=== PATIENT | female | born 1995 | race American Indian/Alaskan Native ===

== ENCOUNTER 2017-11-16 18:17 | Emergency (ER) | payer SELFPAY ==
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
[2017-11-16] MEDS ORDERED: MOTRIN PO ONE (21:42)
[2017-11-17 00:34] VITALS: BP 113/62
== END 2017-11-16 22:00 | disposition home or self-care (01) ==
LOC: ED 18:17
DX: M79.1 Myalgia (principal); V49.49XA Driver injured in collision with other motor vehicles in traffic accident, initial encounter; W22.11XA Striking against or struck by driver side automobile airbag, initial encounter; Y93.89 Activity, other specified; Y92.89 Other specified places as the place of occurrence of the external cause; Y99.8 Other external cause status
CPT/HCPCS: 72040; 99283

== ENCOUNTER 2020-04-17 18:59 | Emergency (ER) | payer SELFPAY ==
[2020-04-17 19:16] VITALS: BP 114/78
== END 2020-04-17 19:40 | disposition left against medical advice (07) ==
LOC: ED 18:59
DX: Z00.00 Encounter for general adult medical examination without abnormal findings (principal); Z53.21 Procedure and treatment not carried out due to patient leaving prior to being seen by health care provider

== ENCOUNTER 2020-12-23 11:37 | Emergency (ER) | payer BC ==
--- NOTE | 2020-12-23 12:56 | Emergency Department Report ---
Blank Doc - Documentation Documentation: 25-year-old female that presents with acute psychosis. Patient denies any his tory of this. Denies any suicidal homicidal ideation. Patient denies any history of psych. 1- This initial assessment/diagnostic orders/clinical plan/ treatment(s) is/are subject to change based on pt's health status, clinical progression and re- assessment by fellow clinical providers in the ED. Further treatment and workup at subsequent clinical provers discretion. Patient/guardians urged not to elope from ED as their condition may be serious if not clinically assessed and managed. 2-consulted with Dr. Hagen and agrees to ED plan of care with imaging studies 3- pt placed on psych hold orders and certified ophthalmic technologist notified.
[2020-12-23 12:58] LABS: Eosinophils # (Auto) 0.1 K/mm3 (0.0-0.4); Eosinophils % (Auto) 2.3 % (0.0-4.3); Hematocrit 35.1 % (30.3-42.9); Hemoglobin 11.5 gm/dl (10.1-14.3); Lymphocytes # (Auto) 1.9 K/mm3 (1.2-5.4); Lymphocytes % (Auto) 40.3 % (13.4-35.0); Mean Corpuscular HGB Conc 33 % (30-34); Mean Corpuscular Volume 87 fl (79-97); Monocytes # (Auto) 0.5 K/mm3 (0.0-0.8); Monocytes % (Auto) 10.2 % (0.0-7.3); Platelet Count 268 K/mm3 (140-440); Red Blood Count 4.05 M/mm3 (3.65-5.03); Red Cell Distribution Width 16.1 % (13.2-15.2)
[2020-12-23 13:38] LABS: Blood Urea Nitrogen 6 mg/dL (7-17); Calcium 9.7 mg/dL (8.4-10.2); Hemolysis Index 3
[2020-12-23 13:39] LABS: BUN/Creatinine Ratio 10
--- NOTE | 2020-12-23 14:29 | Cat Scan Report ---
CT head/brain wo con INDICATION: acute psychosis. TECHNIQUE: Routine CT head. All CT scans at this location are performed using CT dose reduction for A FLAVIO by means of automated exposure control. COMPARISON: None. FINDINGS: Intracranial: Chávez-white matter differentiation is maintained. No intracranial hemorrhage. No extra a xial collection. No hydrocephalus. No herniation. Sinuses: Paranasal sinuses and mastoid air cells are essentially clear. Orbits: Globes are intact. Calvarium: No acute fracture. IMPRESSION: 1. No acute intracranial abnormality. Signer Name: Joao Jones MD Signed: 12/23/2020 2:24 PM Workstation Name: [id number]
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
[2020-12-23 16:07] LABS: Bilirubin,Urine NEG (Negative); Blood,Urine NEG (Negative); Color,Urine Yellow (Yellow); Mucus,Urine FEW /HPF; Protein,Urine <15 mg/dL mg/dL (Negative); Urobilinogen,Urine < 2.0 mg/dL (<2.0)
[2020-12-23 16:09] LABS: Amphetamine Screen,Urine Negative; Benzodiazepines Screen,Urine Negative; Cocaine Screen,Urine Negative; Methadone Screen,Urine Negative; Opiate Screen,Urine Negative
[2020-12-23 16:20] LABS: Cannabinoid Screen,Urine Positive
[2020-12-24 08:14] VITALS: BP 132/66
== END 2020-12-23 22:22 ==
LOC: ED 11:37
DX: F23 Brief psychotic disorder (principal); F30.9 Manic episode, unspecified; R45.850 Homicidal ideations; R51.9 Headache, unspecified; F17.200 Nicotine dependence, unspecified, uncomplicated; Z98.890 Other specified postprocedural states; Z79.1 Long term (current) use of non-steroidal anti-inflammatories (NSAID); Z79.899 Other long term (current) drug therapy
CPT/HCPCS: 36415; 70450; 80048; 80307; 80320; 81001; 84443; 84703; 85025; 87086; G0480

== ENCOUNTER 2021-09-08 11:55 | Outpatient (CLI) | payer BC, MEDICAID ==
[2021-09-08 12:43] VITALS: BP 101/55
[2021-09-08] MEDS ORDERED: LACTATED RINGERS 500 ML IV ONE (12:50)
[2021-09-08 13:22] LABS: Amorphous Crystals,Urine 3+; Bacteria,Urine 2+ /HPF (Negative); Bilirubin,Urine NEG (Negative); Blood,Urine NEG (Negative); Color,Urine Yellow (Yellow); Mucus,Urine FEW /HPF; Protein,Urine <15 mg/dL mg/dL (Negative); Urobilinogen,Urine < 2.0 mg/dL (<2.0)
--- NOTE | 2021-09-08 16:38 | Ultrasound Report ---
ULTRASOUND OBSTETRIC LIMITED ULTRASOUND BIOPHYSICAL PROFILE INDICATION / CLINICAL INFORMATION: Biophysical profile. Clinical Gestational Age (GA) in weeks, days: 29, 0 TECHNIQUE: Transabdominal. COMPARISON: None available. FINDINGS: BREATHING MOVEMENT = 2 GROSS BODY MOVEMENT = 2 TONE = 2 QUALITATIVE AMNIOTIC FLUID VOLUME = 2 TOTAL BIOPHYSICAL SCORE = 8/8 HEART RATE (beats per minute): 154 AMNIOTIC FLUID INDEX (cm) = normal but not measured (normal = 7-24 cm) PRESENTATION: Cephalic. ADDITIONAL FINDINGS: None. IMPRESSION: 1. Biophysical Score = 8/8 Signer Name: Brittaney Aldridge MD Signed: 09/08/2021 4:34 PM Workstation Name: [id number]
== END 2021-09-08 14:44 | disposition home or self-care (01) ==
LOC: TRG 11:55 → APU 11:56 → TRG 14:44
PROVIDERS: ATTEND Obstetrics & Gynecology
DX: O26.893 Other specified pregnancy related conditions, third trimester (principal); Z3A.29 29 weeks gestation of pregnancy
CPT/HCPCS: 76819; 81001

== ENCOUNTER 2021-11-18 11:26 | Outpatient (CLI) | payer BC, MEDICAID ==
[2021-11-18 12:07] VITALS: BP 100/62
--- NOTE | 2021-11-18 13:25 | Ultrasound Report ---
ULTRASOUND OBSTETRIC LIMITED ULTRASOUND BIOPHYSICAL PROFILE INDICATION / CLINICAL INFORMATION: Evaluate well-being and KB. COMPARISON: OB ultrasound performed on 09/08/2021. FINDINGS: BREATHING MOVEMENT = 2 GROSS BODY MOVEMENT = 2 TONE = 2 QUALITATIVE AMNIOTIC FLUID VOLUME = 2 TOTAL BIOPHYSICAL SCORE = 8/8 AMNIOTIC FLUID INDEX (cm) = 15.2 PRESENTATION: Cephalic. HEART RATE (beats per minute): 152 ADDITIONAL FINDINGS: None. IMPRESSION: 1. Biophysical Score = 8/8 2. Normal amniotic fluid index of 15.2 cm. Signer Name: David Huerta MD Signed: 11/18/2021 1:20 PM Workstation Name: [id number]
== END 2021-11-18 12:50 | disposition home or self-care (01) ==
LOC: TRG 11:26 → APU 11:28 → TRG 12:50
PROVIDERS: ATTEND Obstetrics & Gynecology
DX: Z34.93 Encounter for supervision of normal pregnancy, unspecified, third trimester (principal); Z3A.39 39 weeks gestation of pregnancy
CPT/HCPCS: 59025; 76815; 76819

== ENCOUNTER 2021-11-24 11:10 | Inpatient (IN) | payer BC, MEDICAID ==
[2021-11-24] MEDS ORDERED: ONDANSETRON 4 MG/2 ML INJ IV PRN (13:08)
[2021-11-24] MEDS ORDERED: CARBOPROST TROMETHAMINE 250 MCG/1 ML INJ IM PRN (13:08)
[2021-11-24] MEDS ORDERED: fentaNYL 100 MCG/2 ML INJ IV PRN (13:08)
[2021-11-24] MEDS ORDERED: METHYLERGONOVINE MALEATE 0.2 MG/ML VIAL IM PRN (13:08)
[2021-11-24] MEDS ORDERED: DINOPROSTONE 10 MG VAG SUPP VG ONE (13:08)
[2021-11-24] MEDS ORDERED: MINERAL OIL 30 ML ORAL LIQD PO PRN (13:08)
[2021-11-24] MEDS ORDERED: BUTORPHANOL 2 MG/1 ML INJ IV PRN ×2 (13:08)
[2021-11-24] MEDS ORDERED: ACETAMINOPHEN 325 MG TAB PO PRN (13:08)
[2021-11-24] MEDS ORDERED: ePHEDrine SULFATE 50 MG/1 ML INJ IV PRN (13:08)
[2021-11-24] MEDS ORDERED: TERBUTALINE 1 MG/1 ML INJ SUB-Q PRN (13:08)
[2021-11-24] MEDS ORDERED: OXYTOCIN 10 UNIT/1 ML INJ IM PRN (13:08)
[2021-11-24] MEDS ORDERED: LIDOCAINE (2%) 20 MG/1 ML VIAL 20 ML MDV INFILTRATI ONE (13:08)
[2021-11-24] MEDS ORDERED: LOPERAMIDE 2 MG CAP PO PRN (13:08)
[2021-11-24] MEDS ORDERED: miSOPROStol 200 MCG TAB PR PRN (13:08)
[2021-11-24] MEDS ORDERED: NalbUPHINE 10 MG/1 ML INJ IV PRN (13:08)
[2021-11-24] MEDS ORDERED: LACTATED RINGERS 1,000 ML IV SCH (13:15)
--- NOTE | 2021-11-24 13:24 | History and Physical Report ---
History of Present Illness Date of examination: 11/24/21 Date of admission: 11/24/21 11:10 Chief complaint: Small for dates. History of present illness: 40 wks, CHIR[place] 11/24/21. G2 Para 0. STD earlier in preg. Past History Past Medical History: other (Bipolar disorder) ACCOUNTS RECEIVABLE EXECUTIVE History: chlamydia, gonorrhea Social history: no significant social history - Obstetrical History Expected Date of Delivery: 11/24/21 Actual Gestation: 40 Week(s) 0 Day(s) : 2 Para: 0 Medications and Allergies Allergies Allergy/AdvReac Type Severity Reaction Status Date / Time No Known Allergies Allergy Verified 11/24/21 13:14 Home Medications Medication Instructions Recorded Confirmed Last Taken Type Cyclobenzaprine [Flexeril] 10 mg PO TID PRN #6 tablet 11/16/17 Unknown Rx Ibuprofen [Motrin] 600 mg PO Q8H PRN #20 tablet 11/16/17 Unknown Rx Active Meds: Active Medications Acetaminophen (Acetaminophen 325 Mg Tab) 650 mg PO Q4H PRN PRN Reason: Pain, Mild (1-3) Butorphanol Tartrate (Butorphanol 2 Mg/1 Ml Inj) 1 mg IV Q2H PRN PRN Reason: Pain, Moderate(4-6) LABOR PAIN Butorphanol Tartrate (Butorphanol 2 Mg/1 Ml Inj) 2 mg IV Q2H PRN PRN Reason: Pain , Severe (7-10) Carboprost Tromethamine (Carboprost Tromethamine 250 Mcg/1 Ml Inj) 250 mcg IM ONCE PRN PRN Reason: Uterine Bleeding Dinoprostone (Dinoprostone 10 Mg Vag Supp) 10 mg VG ONCE ONE Stop: 11/24/21 13:09 Ephedrine Sulfate (Ephedrine Sulfate 50 Mg/1 Ml Inj) 10 mg IV Q2M PRN PRN Reason: Hypotension Fentanyl (Fentanyl 100 Mcg/2 Ml Inj) 100 mcg IV Q2H PRN PRN Reason: Pain,Severe (7-10) LABOR PAIN Oxytocin/Sodium Chloride (Pitocin/Ns 30 Unit/500ml) 30 units in 500 mls @ 2 mls/hr IV TITR ASHLEY; Protocol Lactated Ringer's (Lactated Ringers) 1,000 mls @ 125 mls/hr IV DIRECT ASHLEY Oxytocin/Sodium Chloride (Pitocin/Ns 30 Unit/500ml) 30 units in 500 mls @ 40 mls/hr IV TITR ASHLEY; Protocol Lidocaine (Lidocaine (2%) 20 Mg/1 Ml Vial 20 Ml Mdv) 20 ml INFILTRATI ONCE ONE Stop: 11/24/21 13:09 Loperamide HCl (Loperamide 2 Mg Cap) 2 mg PO ONCE PRN PRN Reason: give with Hemabate Methylergonovine Maleate (Methylergonovine Maleate 0.2 Mg/Ml Vial) 0.2 mg IM ONCE PRN PRN Reason: Uterine Bleeding Mineral Oil (Mineral Oil 30 Ml Oral Liqd) 30 ml PO QHS PRN PRN Reason: Constipation Misoprostol (Misoprostol 200 Mcg Tab) 800 mcg MT ONCE PRN PRN Reason: Uterine Bleeding Nalbuphine HCl (Nalbuphine 10 Mg/1 Ml Inj) 10 mg IV Q2H PRN PRN Reason: Pain, Moderate (4-6) Ondansetron HCl (Ondansetron 4 Mg/2 Ml Inj) 4 mg IV Q8H PRN PRN Reason: Nausea And Vomiting Oxytocin (Oxytocin 10 Unit/1 Ml Inj) 10 unit IM ONCE PRN PRN Reason: Uterine Bleeding Terbutaline Sulfate (Terbutaline 1 Mg/1 Ml Inj) 0.25 mg SUB-Q ONCE PRN PRN Reason: Hyperstimulation/Hypertonicity Review of Systems All systems: negative - Vital Signs Vital signs: Vital Signs Pulse BP Pulse Ox 54 L 102/54 71 L 11/24/21 12:02 11/24/21 12:02 11/24/21 12:02 Temp Pulse Resp BP Pulse Ox 98.7 F 69 20 102/54 96 11/24/21 12:03 11/24/21 13:16 11/24/21 12:03 11/24/21 12:03 11/24/21 13:16 - Physical Exam Breasts: Positive: deferred Cardiovascular: Normal S1, Normal S2, No murmurs Lungs: Positive: Normal air movement Abdomen: Positive: soft, normal bowel sounds Genitourinary (Female): Positive: normal external genitalia, normal perenium Vulva: both: normal Vagina: Positive: normal moisture. Negative: discharge Cervix: Negative: lesion, discharge Uterus: Positive: enlarged, normal contour Anus/Rectum: Positive: normal perianal skin, heme negative. Negative: rectal mass, hemorrhoids Extremities: Positive: normal Deep Tendon Reflex Grade: Normal +2 - Obstetrical FHR: auscultation normal Cervical Dilatation: 0 Cervical Effacement Percentage: 85 station: 0-1 Uterine Contraction Pattern: Absent Results All other labs normal. Assessment and Plan - Patient Problems (1) Small for dates in prior , currently in third trimester Current Visit: Yes Status: Acute (2) 40 weeks gestation of Current Visit: Yes Status: Acute Plan to address problem: for L&D observation with induction of labor.
[2021-11-24 13:25] LABS: Hematocrit 35.4 % (30.3-42.9); Hemoglobin 11.9 gm/dl (10.1-14.3); Mean Corpuscular HGB Conc 34 % (30-34); Mean Corpuscular Volume 92 fl (79-97); Platelet Count 199 K/mm3 (140-440); Red Blood Count 3.85 M/mm3 (3.65-5.03); Red Cell Distribution Width 13.4 % (13.2-15.2)
[2021-11-24] MEDS ORDERED: OXYTOCIN DRIP 30 UNITS/500 ML BAG IV SCH ×2 (14:00)
[2021-11-25] MEDS ORDERED: DINOPROSTONE 10 MG VAG SUPP VG NR (09:37)
--- NOTE | 2021-11-25 10:02 | Event Note ---
Date: 11/25/21 Stable. Patient unable to tolerate vaginal exam. Charge nurse SHYLA Edwards reported a closed cervix. Patient declined epidural at this time.
[2021-11-26] MEDS: miSOPROStol 25 MCG TAB PO SCH ×3 (01:10→09:38)
--- NOTE | 2021-11-26 14:37 | Event Note ---
Date: 11/26/21 Sitting by bedside and eating breakfast. Massiel q8-10mins. Fetus reactive. Still uncooperative with vaginal exams including placement of medications. Observation of ongoing contractions will continue and if becomes painful and patient consents for an epidural, management of labor and delivery process can continue. Told patient a delivery is under consideration if she wont tolerate vag exams.
[2021-11-27] MEDS ORDERED: LIDOCAINE MPF (2%) 20 MG/1 ML VIAL 5 ML ONE (01:48)
[2021-11-27] MEDS ORDERED: ePHEDrine SULFATE 50 MG/1 ML INJ IV PRN (02:13)
[2021-11-27] MEDS ORDERED: NALOXONE 2 MG/2 ML INJ IV PRN (02:13)
--- NOTE | 2021-11-27 02:15 | Anesthesia Consultation ---
Anesthesia Consult and Med Hx Date of service: 11/27/21 - Airway Anesthetic Teeth Evaluation: Good ROM Head & Neck: Adequate Mental/Hyoid Distance: Adequate Mallampati Class: Class II Intubation Access Assessment: Probably Good - Pulmonary Exam CTA: Yes - Cardiac Exam Cardiac Exam: RRR - Pre-Operative Health Status ASA Pre-Surgery Classification: ASA2 Proposed Anesthetic Plan: Epidural - Pulmonary Hx Asthma: No COPD: No Hx Pneumonia: No - Cardiovascular System Hx Hypertension: No - Central Nervous System Hx Seizures: No Hx Psychiatric Problems: Yes - Endocrine Hx Renal Disease: No Hx End Stage Renal Disease: No Hx Hypothyroidism: No Hx Hyperthyroidism: No - Hematic Hx Anemia: Yes Hx Sickle Cell Disease: No - Other Systems Hx Alcohol Use: No
--- NOTE | 2021-11-27 02:29 | Event Note ---
Date: 11/27/21 Was called with report patient was 9cm dilated. Patient recalcitrant in not allowing vaginal exam. Brief exam by me before she nearly jumped off the bed was at best 6cm. For overall safety of patient and her fetus further conduct of labor for a chance at vaginal delivery was stopped. Patient will be delivered by .
[2021-11-27] MEDS ORDERED: FAMOTIDINE 20 MG/2 ML INJ IV ONE (02:30)
[2021-11-27] MEDS ORDERED: METOCLOPRAMIDE 10 MG/2 ML INJ IV ONE (02:30)
[2021-11-27] MEDS ORDERED: BICITRA ORAL LIQD 30ML PO ONE (02:30)
[2021-11-27] MEDS ORDERED: propofoL 200 MG/20 ML VIAL IV ONE (02:41)
[2021-11-27] MEDS ORDERED: KETAMINE/STERILE WATER 50 MG/ML SYRINGE ONE (02:42)
[2021-11-27] MEDS ORDERED: ROCURONIUM 50 MG/5 ML INJ IV ONE (02:44)
[2021-11-27] MEDS ORDERED: SUGAMMADEX SODIUM 200 MG/2 ML VIAL IV ONE (02:51)
[2021-11-27] MEDS ORDERED: fentaNYL-BUPIV 2 MCG/ML-0.125% 200 MCG/100 ML BAG EPIDURAL SCH (03:00)
[2021-11-27] MEDS ORDERED: OXYTOCIN DRIP 30 UNITS/500 ML BAG IV SCH ×2 (03:00→05:00)
[2021-11-27] MEDS ORDERED: ceFAZolin/Water 2 GM/20 ML 2 GM/20 ML SYRINGE IV NR (03:00)
[2021-11-27] MEDS ORDERED: ceFAZolin/STERILE WATER 2 GM/20 ML SYRINGE IV ONE (03:25)
[2021-11-27] MEDS ORDERED: dexAMETHasone 20 MG/5 ML VIAL ONE (03:26)
[2021-11-27] MEDS ORDERED: BUPIVACAINE/PF (0.25%) 2.5 MG/ML 30 ML VIAL INFILTRATI ONE (03:26)
[2021-11-27] MEDS ORDERED: ONDANSETRON 4 MG/2 ML INJ ONE (03:26)
[2021-11-27] MEDS ORDERED: WATER FOR IRRIG STERILE 1,500 ML BOTTLE IR ONE (03:28)
[2021-11-27] MEDS ORDERED: SODIUM CHLORIDE 0.9% IRR 1,500 ML BOTTLE IR ONE (03:28)
[2021-11-27] MEDS ORDERED: LACTATED RINGERS 1,000 ML ONE (03:34)
[2021-11-27] MEDS ORDERED: OXYTOCIN 10 UNIT/1 ML INJ ONE (03:49)
[2021-11-27] MEDS ORDERED: KETOROLAC 30 MG/1 ML INJ ONE (03:49)
[2021-11-27] MEDS ORDERED: HETASTARCH 6% 500 ML IV ONE (03:50)
[2021-11-27] MEDS ORDERED: WITCH HAZEL/ GLYCERIN PAD TP PRN (04:16)
[2021-11-27] MEDS ORDERED: MORPHINE 2 MG/1 ML INJ IV PRN (04:16)
[2021-11-27] MEDS ORDERED: KETOROLAC 30 MG/1 ML INJ IV PRN ×2 (04:16)
[2021-11-27] MEDS ORDERED: IBUPROFEN 600 MG TAB PO PRN (04:16)
[2021-11-27] MEDS ORDERED: NALOXONE 0.4 MG/1 ML INJ IV PRN (04:16)
[2021-11-27] MEDS ORDERED: MORPHINE 4 MG/1 ML INJ IV PRN (04:16)
[2021-11-27] MEDS ORDERED: LANOLIN/ZINC/DIMETHICONE (LANSINOH) 7 GM TP PRN (04:16)
--- NOTE | 2021-11-27 04:24 | Operative Report ---
Operative Report Operative Report: Date of surgery: November 27, 2021 Preoperative diagnoses: Primigravida, 40+ weeks gestation, vaginismus, i ntolerance of labor. Postoperative diagnoses: The same. Operation: Lower segment transverse delivery Surgeon:Ynes Dorsey MD Remote Sensing Technician: Dominick Carranza CRNA Anesthesia: General anesthesia Estimated blood loss: 1395 mL Complications: None Findings: There was a live baby girl with vertex in the false maternal pelvis, Apgars 6 and 8. Both ovaries and tubes as well as the uterus were unremarkable gravid structures. There were no abnormalities detected within the lower abdomen and pelvis. Procedure in detail: The patient was taken to the operating room and given general anesthesia. Patient was placed in the straight supine position and a Eastman catheter was inserted. The patient was prepped in the abdomen. The drapes were placed. A timeout was done. With the go ahead from the tc operator, a Pfannenstiel incision was made. This incision was carried across the subcutaneous layer to the fascia which was also divided transversely. The recti abdominis muscle flaps were stripped from the fascia using a combination of blunt and sharp dissections. The muscles were in the midline to gain access to the anterior parietal peritoneum which was divided after excluding any underlying viscera. The access to the peritoneal cavity was then widened by manual stretching. The bladder blade was applied. The utero vesicle peritoneal flap was divided transversely allowing the bladder to be displaced caudally. The uterine incision was placed in the lower segment transversely. The uterine incision was carried to the decidual layer. The uterine incision was extended on both sides using the bandage scissors. The amniotic sac was ruptured with clear fluid. The head was lifted out of the false maternal pelvis and delivered through the incision using fundal pressure plus traction with the Kiwi. The airways were bulb suctioned beginning with the mouth. Continuing fundal pressure combined with traction on the mandibular processes of the jaw delivered the rest of the baby. The umbilical cord was double clamped and divided. The baby was carefully transferred to the pediatric team. The placenta was manually removed from the uterine cavity. The uterine cavity was explored and was empty of any placental remnants. The uterine incision was repaired in 2 layers with #1 Vicryl. The surgical line on the uterus was hemostatic. Blood and clots were cleared from the peritoneal cavity. The anterior parietal peritoneum was repaired with #1 Vicryl. The fascia was repaired with #1 Vicryl. The subcutaneous layer was made hemostatic using the Bovie before the skin was closed subcuticularly with 4-0 Vicryl. There were no complications. The estimated blood loss was 1395 mL. All sponges and instrument counts were correct. Patient was safely transferred to the recovery room.
[2021-11-27] MEDS ORDERED: PRENATAL VIT27-FE FUMARATE-FOLIC ACID VIT TAB PO SCH (10:00)
[2021-11-27] MEDS: ceFAZolin/NS 1 GM/50 ML 1 GM/50 ML BAG IV SCH ×2 (10:30→18:24)
[2021-11-27] MEDS: IBUPROFEN 800 MG TAB PO PRN ×2 (12:18→18:24)
--- NOTE | 2021-11-27 12:40 | Post Anesthesia Evaluation ---
- Post Anesthesia Evaluation Patient Participated: Yes Airway Patent: Yes Stable Respiratory Function: Yes Nausea/Vomiting: No Temp > 96.8F: Yes Pain Manageable: Yes Adequeate Hydration: Yes Anesthesia Complications: No Block Receding Appropriately: Yes
[2021-11-27] MEDS: HYDROcodone/ACETAMINOPHEN 5-325 MG TAB PO PRN (15:08)
[2021-11-28 00:29] LABS: Basophils % (Auto) 0.1 % (0.0-1.8); Hematocrit 26.8 % (30.3-42.9); Lymphocytes % (Auto) 12.1 % (13.4-35.0); Mean Corpuscular HGB Conc 33 % (30-34); Mean Corpuscular Volume 93 fl (79-97); Monocytes # (Auto) 1.6 K/mm3 (0.0-0.8); Monocytes % (Auto) 9.7 % (0.0-7.3); Platelet Count 167 K/mm3 (140-440); Red Blood Count 2.88 M/mm3 (3.65-5.03); Red Cell Distribution Width 13.4 % (13.2-15.2)
--- NOTE | 2021-11-28 10:02 | Progress Note ---
Assessment and Plan - Patient Problems (1) Small for dates infant in prior , currently in third trimester Current Visit: Yes Status: Resolved (2) 40 weeks gestation of Current Visit: Yes Status: Resolved (3) Vaginismus Current Visit: Yes Status: Acute (4) Bipolar disease, chronic Current Visit: Yes Status: Chronic (5) Status post delivery Current Visit: Yes Status: Acute Plan to address problem: Stable, doing great and is happy. Considering going home later today. Subjective - Subjective Date of service: 11/28/21 Principal diagnosis: Status post day 1. Interval history: 40 wks, [place]AG 11/24/21. G2 Para 0. STD earlier in preg. section 11/27/21. Patient reports: appetite normal (0), voiding normally, pain well controlled, ambulating normally Objective - Vital Signs Latest vital signs: Vital Signs Temp Pulse Resp BP Pulse Ox Pulse Ox 11/28/21 08:10 98.4 F 71 18 108/77 98 11/28/21 08:00 98 11/28/21 00:07 98.5 F 77 20 106/54 98 11/27/21 20:39 98.6 F 64 20 116/53 100 11/27/21 20:10 100 11/27/21 15:44 99.4 F 103 H 18 102/59 93 11/27/21 12:00 98.8 F 67 18 126/77 99 Intake and Output 11/27/21 11/28/21 11/28/21 23:59 07:59 15:59 Intake Total 720 600 Output Total 550 1150 Balance 170 -550 Intake: Oral 360 240 Intake, Free Water 360 360 Output: Urine 550 1150 Void 550 1150 Other: Total, Intake Amount 360 240 Total, Output Amount 550 650 - Exam Breasts: Present: deferred Lungs: Present: Normal air movement Abdomen: Present: normal appearance, soft, normal bowel sounds Uterus: Present: normal, firm Extremities: Present: normal Deep Tendon Reflex Grade: Normal +2 Incision: Present: normal, dry, intact - Labs Labs: Abnormal lab results 11/27/21 Range/Units 23:42 WBC 16.9 H (4.5-11.0) K/mm3 RBC 2.88 L (3.65-5.03) M/mm3 Hgb 9.0 L (10.1-14.3) gm/dl Hct 26.8 L (30.3-42.9) % Lymph % (Auto) 12.1 L (13.4-35.0) % Vermillion % (Auto) 9.7 H (0.0-7.3) % [place] # (Auto) 1.6 H (0.0-0.8) K/mm3 Seg Neutrophils % 78.1 H (40.0-70.0) % Seg Neutrophils # 13.2 H (1.8-7.7) K/mm3
--- NOTE | 2021-11-28 10:11 | Discharge Summary ---
Providers - Providers Date of Admission: 11/24/21 13:08 Date of discharge: 11/29/21 Attending physician: SHONNA MACARIO MD Primary care physician: SHONNA MACARIO MD Hospitalization Reason for admission: observation, induction of labor, IUP at term Delivery: Procedure: section Episiotomy: none Laceration: none Incision: normal, dry, intact Other procedures: none Discharge diagnosis: IUP at term delivered baby: female Condition at discharge: Good Disposition: 01 HOME / SELF CARE / HOMELESS - Discharge Diagnoses (1) Small for dates infant in prior , currently in third trimester Status: Resolved (2) 40 weeks gestation of Status: Resolved (3) Vaginismus Status: Acute (4) Bipolar disease, chronic Status: Chronic (5) Status post delivery Status: Acute Plan - Provider Discharge Summary Activity: routine, no sex for 6 weeks, no heavy lifting 4 weeks, no strenuous exercise, other Diet: routine Instructions: other (Must see own Psychiatrist patsy upon discharge for her bipolar meds.) Additional instructions: [] Smoking cessation referral if applicable(refer to patient education folder for contact #) [] Refer to [facility]'s [facility] Booklet Call your doctor immediately for: * Fever > 100.5 * Heavy vaginal bleeding ( >1 pad per hour) * Severe persistent headache * Shortness of breath * Reddened, hot, painful area to leg or breast * Drainage or odor from incision. * Keep incision clean and dry at all times and follow doctor's instructions regarding bathing/showering - Follow up plan Follow up: SHONNA MACARIO MD [Primary Care Provider] - 7 Days
[2021-11-28] MEDS: IBUPROFEN 800 MG TAB PO PRN (22:15)
[2021-11-29] MEDS: HYDROcodone/ACETAMINOPHEN 5-325 MG TAB PO PRN (11:06)
--- NOTE | 2021-11-29 11:51 | Consultation ---
History of Present Illness - Reason for Consult Consult date: 11/29/21 Reason for consult: Hx of bipolar - Chief Complaint Chief complaint: Small for dates. - History of Present Psychiatric Illness The patient is a 26 year old female with history of bipolar disorder who was consulted for mental health evaluation. The patient was seen this morning. She is calm, alert and oriented x3. the The patient reports that she was diagnosed with bipolar in 12/15 and was admitted at a psychiatric inpatient facility at that time. She is unable to recall the psychotropic meds that she was started on but states she stopped taking meds since her . She denies being depressed, excessively anxious or having manic symptoms. The patient reports that she sees a psychiatrist and would be following up with them post discharge. She denies any current suicidal/homicidal ideation and denies hallucinations. PAST PSYCHIATRIC HISTORY Diagnoses: Bipolar Suicide attempts or Self-harm behavior:Denies Prior psychiatric hospitalizations: Denies Substance Abuse history:Marijuana Previous psychiatric medications tried:Denies Outpatient treatment: denies SOCIAL HISTORY Marital Status: Single Living Arrangements: Lives with mother Employment Status: Unemployed Access to guns/weapons: Denies Education: 12th grade History of abuse: Denies Legal History: Denies ROS Constitutional: Negative for weight loss EMT: Respiratory: Negative for cough or hemoptysis All other systems reviewed and are negative MENTAL STATUS EXAMINATION General Appearance: Dressed appropriately. Behavior: Calm and cooperative. Good eye contact. Mood: ok Affect: congruent to stated mood Speech: Normal Thought Process: Goal directed Thought Content:Denies Suicidal Ideation:Denies Homicidal Ideation: Denies Hallucinations: Denies Delusions: None elicited Insight and Judgment: Limited Memory/Cognition: Limited Assessment and Plan (1)Hx of Bipolar Treatment Plan No medications prescribed Risks, benefits and alternatives of medications discussed with the patient, questions answered and consent obtained from patient. PSYCHOTHERAPY: Supportive psychotherapy provided MEDICAL: Per primary team DELIRIUM PRECAUTIONS: Please re-orient patient frequently, keep lights on during the day, and minimize benzodiazepines and opiates as these medications could worsen patient's confusion. WAITER: Per primary DISPOSITION:Do not recommend acute inpatient psychiatric hospitalization at this time. Will sign off. Thank you for the consult. Please contact with any questions and/or concerns. Case discussed with Dr. Amato who agrees with current disposition Medications and Allergies Medications and Allergies Allergies Allergy/AdvReac Type Severity Reaction Status Date / Time latex Allergy Itching Verified 11/27/21 08:28 Home Medications Medication Instructions Recorded Confirmed Last Taken Type Cyclobenzaprine [Flexeril] 10 mg PO TID PRN #6 tablet 11/16/17 11/27/21 Unknown Rx Ibuprofen [Motrin] 600 mg PO Q8H PRN #20 tablet 11/16/17 11/27/21 Unknown Rx Active Meds: Active Medications Hydrocodone Bitart/Acetaminophen (Hydrocodone/Acetaminophen 5-325 Mg Tab) 1 each PO Q6H PRN PRN Reason: Pain, Moderate (4-6) Last Admin: 11/27/21 15:08 Dose: 1 each Oxytocin/Sodium Chloride (Pitocin/Ns 30 Unit/500ml) 30 units in 500 mls @ 40 mls/hr IV TITR ASHLEY; Protocol Ibuprofen (Ibuprofen 600 Mg Tab) 600 mg PO Q6H PRN PRN Reason: Pain, Mild (1-3) Ibuprofen (Ibuprofen 800 Mg Tab) 800 mg PO Q6H PRN PRN Reason: Pain, Moderate (4-6) Last Admin: 11/28/21 22:15 Dose: 800 mg Ketorolac Tromethamine (Ketorolac 30 Mg/1 Ml Inj) 15 mg IV Q6H PRN PRN Reason: Pain, Mild (1-3) Stop: 12/02/21 04:15 Ketorolac Tromethamine (Ketorolac 30 Mg/1 Ml Inj) 30 mg IV Q6H PRN PRN Reason: Pain, Moderate (4-6) Stop: 12/02/21 04:15 Morphine Sulfate (Morphine 2 Mg/1 Ml Inj) 2 mg IV Q4H PRN PRN Reason: Pain, Moderate (4-6) Morphine Sulfate (Morphine 4 Mg/1 Ml Inj) 4 mg IV Q4H PRN PRN Reason: Pain , Severe (7-10) Multi-Ingredient Ointment (Lanolin/Zinc/Dimethicone (Lansinoh) 7 Gm) 1 applic TP PRN PRN PRN Reason: dryness/cracking Multivitamins/Iron/Calcium ( [id number]-[id number] Fumarate-Folic Acid Vit Tab) 1 each PO QDAY ASHLEY Last Admin: 11/27/21 10:29 Dose: 1 each Naloxone HCl (Naloxone 0.4 Mg/1 Ml Inj) 0.1 mg IV Q2MIN PRN PRN Reason: Res Rate </= 8 or 02 SAT < 92% Witch Nu/Glycerin (Witch Nu/ Glycerin Pad) 1 each TP PRN PRN PRN Reason: Hemorrhoids/cleansing/soothing Mental Status Exam - Vital signs Last Vital Signs Temp 98.2 F 11/29/21 07:10 Pulse 72 11/29/21 07:10 Resp 18 11/29/21 07:10 BP 119/61 11/29/21 07:10 Pulse Ox 98 11/29/21 08:00 Results Result Diagrams: 11/27/21 23:42 All other labs normal.
[2021-11-29 16:53] VITALS: BP 118/84
== END 2021-11-29 17:45 | disposition home or self-care (01) | DRG 788 ==
LOC: LD 11:10 → UNDOADMIN 11:10 → LD 13:08 → APU 11-27 03:15 → OB 11-27 07:11
PROVIDERS: ADMIT Obstetrics & Gynecology; ATTEND Obstetrics & Gynecology
PROC: 10D00Z1 Extraction of Products of Conception, Low, Open Approach (ICD-10-PCS; principal; 2021-11-27)
DX: O36.5930 Maternal care for other known or suspected poor fetal growth, third trimester, not applicable or unspecified (principal); Z3A.40 40 weeks gestation of pregnancy; Z37.0 Single live birth; O99.344 Other mental disorders complicating childbirth; F31.9 Bipolar disorder, unspecified; O34.63 Maternal care for abnormality of vagina, third trimester; N94.2 Vaginismus; O77.9 Labor and delivery complicated by fetal stress, unspecified; Z91.040 Latex allergy status
CPT/HCPCS: 36415; 59200; 85025; 85027; 86850; 86900; 86901; G0378; J3490; J7120; Q0177; J0595; J0690; J1100; J1885; J2405; J2590; J2704

== ENCOUNTER 2022-02-01 15:55 | Emergency (ER) | payer BC, MEDICAID ==
[2022-02-01 20:27] VITALS: BP 109/47
== END 2022-02-01 23:41 | disposition left against medical advice (07) ==
LOC: ED 15:55
DX: F31.9 Bipolar disorder, unspecified (principal); Z76.0 Encounter for issue of repeat prescription; Z53.21 Procedure and treatment not carried out due to patient leaving prior to being seen by health care provider

== ENCOUNTER 2022-02-12 21:59 | Emergency (ER) | payer BC, MEDICAID ==
[2022-02-13] MEDS ORDERED: ZIPRASIDONE MESYLATE 20 MG VIAL IM ONE (02:21)
[2022-02-13 03:10] LABS: Basophils % (Auto) 0.9 % (0.0-1.8); Eosinophils % (Auto) 0.3 % (0.0-4.3); Hemoglobin 11.6 gm/dl (10.1-14.3); Lymphocytes # (Auto) 2.3 K/mm3 (1.2-5.4); Lymphocytes % (Auto) 43.9 % (13.4-35.0); Mean Corpuscular HGB Conc 33 % (30-34); Mean Corpuscular Volume 89 fl (79-97); Monocytes # (Auto) 0.6 K/mm3 (0.0-0.8); Monocytes % (Auto) 11.6 % (0.0-7.3); Platelet Count 232 K/mm3 (140-440); Red Blood Count 3.96 M/mm3 (3.65-5.03); Red Cell Distribution Width 12.9 % (13.2-15.2)
[2022-02-13 03:23] LABS: Alanine Aminotransferase 11 units/L (7-56); Albumin 4.6 g/dL (3.9-5); BUN/Creatinine Ratio 21; Blood Urea Nitrogen 17 mg/dL (7-17); Calcium 9.8 mg/dL (8.4-10.2); Hemolysis Index 4
--- NOTE | 2022-02-13 04:12 | Emergency Department Report ---
ED Medical Clearance HPI - General Chief complaint: Medical Clearance Stated complaint: MH Time Seen by Provider: 02/13/22 04:04 Source: patient Mode of arrival: Ambulatory - History of Present Illness Initial comments: Patient is a 26-year-old female presenting for medical clearance. States she has been off of her psych medications due to being and recently had a child. Contacted [facility] and told to come here for medical clearance. Home medications: Previous Rx's Medication Instructions Recorded Last Taken Type Cyclobenzaprine [Flexeril] 10 mg PO TID PRN #6 tablet 11/16/17 Unknown Rx Ibuprofen [Motrin] 600 mg PO Q8H PRN #20 tablet 11/16/17 Unknown Rx Allergies/Adverse reactions: Allergies Allergy/AdvReac Type Severity Reaction Status Date / Time latex Allergy Itching Verified 11/27/21 08:28 ED Review of Systems ROS: Stated complaint: MH Other details as noted in HPI Constitutional: denies: chills, fever Respiratory: denies: cough, shortness of breath, wheezing Cardiovascular: denies: chest pain, palpitations Gastrointestinal: denies: abdominal pain, nausea, diarrhea Musculoskeletal: denies: back pain, joint swelling, arthralgia Skin: denies: rash, lesions Neurological: denies: headache, weakness, paresthesias Psychiatric: denies: anxiety, depression ED Past Medical Hx - Past Medical History Hx Hypertension: No Hx Diabetes: No Hx Deep Vein Thrombosis: No Hx Renal Disease: No Hx Sickle Cell Disease: No Hx Seizures: No Hx Asthma: No Hx COPD: No Hx HIV: No Additional medical history: Anemia - Surgical History Additional Surgical History: - Social History Smoking Status: Former Smoker - Medications Home Medications: Home Medications Medication Instructions Recorded Confirmed Last Taken Type Cyclobenzaprine [Flexeril] 10 mg PO TID PRN #6 tablet 11/16/17 11/27/21 Unknown Rx Ibuprofen [Motrin] 600 mg PO Q8H PRN #20 tablet 11/16/17 11/27/21 Unknown Rx ED Physical Exam - General Limitations: No Limitations General appearance: alert, in no apparent distress - Head Head exam: Present: atraumatic, normocephalic - Respiratory Respiratory exam: Present: normal lung sounds bilaterally. Absent: respiratory distress - Cardiovascular Cardiovascular Exam: Present: regular rate, normal rhythm, normal heart sounds - GI/Abdominal GI/Abdominal exam: Present: soft. Absent: distended, tenderness - Rectal Rectal exam: Present: deferred - Neurological Exam Neurological exam: Present: alert, oriented X3 - Psychiatric Psychiatric exam: Present: normal affect, normal mood - Skin Skin exam: Present: warm, dry, intact, normal color ED Course Vital Signs 02/12/22 22:42 Temperature 99.0 F Pulse Rate 97 H Respiratory 16 Rate Blood Pressure 113/70 O2 Sat by Pulse 99 Oximetry ED Medical Decision Making - Lab Data Result diagrams: 02/13/22 02:51 02/13/22 02:51 - Medical Decision Making Labs reviewed. Patient medically cleared. We will contact [facility] with results and discharge later this morning once accepted. ED Disposition Clinical Impression: Medical clearance for psychiatric admission Disposition: PSYCHIATRIC HOSPITAL Is pt being admited?: No Condition: Stable Referrals: CLARENCE GODINEZ MD [Primary Care Provider] - 3-5 Days
[2022-02-13 04:51] LABS: Amphetamine Screen,Urine Negative; Benzodiazepines Screen,Urine Negative; Cannabinoid Screen,Urine Negative; Cocaine Screen,Urine Negative; Methadone Screen,Urine Negative; Opiate Screen,Urine Negative
[2022-02-13 05:00] LABS: Bacteria,Urine 1+ /HPF (Negative); Mucus,Urine 2+ /HPF
[2022-02-13 05:03] LABS: Color,Urine Yellow (Yellow)
[2022-02-13 05:04] LABS: Bilirubin,Urine Negative (Negative); Blood,Urine Negative (Negative)
[2022-02-13 08:14] VITALS: BP 118/71
== END 2022-02-13 08:13 ==
LOC: ED 21:59
DX: Z13.30 Encounter for screening examination for mental health and behavioral disorders, unspecified (principal); D64.9 Anemia, unspecified; Z98.890 Other specified postprocedural states; Z87.891 Personal history of nicotine dependence; Z91.040 Latex allergy status
CPT/HCPCS: 36415; 80053; 80307; 81001; 84703; 85025; 99283; J3486; 80320; G0480